=== PATIENT | female | born 1955 | race Caucasian/White ===

== ENCOUNTER 2025-01-18 22:42 | Emergency (ER) | payer MEDICARE ==
[~2025-01-18] VITALS: Ht 157.5 cm; Wt 82.7 kg
[2025-01-18 22:44] VITALS: BP 159/88; PULSE 70; RESP 16; TEMP 97.9; O2SAT 98
[2025-01-19] MEDS: GABAPENTIN 300 MG CAPSULE PO ONE (00:55)
== END 2025-01-19 01:36 | disposition home or self-care (01) ==
LOC: EMS 23:23
DX: S42.352A Displaced comminuted fracture of shaft of humerus, left arm, initial encounter for closed fracture (principal); S42.92XA Fracture of left shoulder girdle, part unspecified, initial encounter for closed fracture; E78.5 Hyperlipidemia, unspecified; I10 Essential (primary) hypertension; Z88.5 Allergy status to narcotic agent; Z87.891 Personal history of nicotine dependence; W19.XXXA Unspecified fall, initial encounter; X50.1XXA Overexertion from prolonged static or awkward postures, initial encounter; Y93.89 Activity, other specified; Y92.89 Other specified places as the place of occurrence of the external cause; Y99.8 Other external cause status
CPT/HCPCS: 29105; 99283